=== PATIENT | male | born 1995 | race Caucasian/White ===

== ENCOUNTER 2016-11-04 15:31 | Emergency (ER) | payer BC ==
[2016-11-04 16:42] VITALS: BP 128/78
--- NOTE | 2016-11-04 16:45 | ERNOTE ---
Medical Problem HPI - Narrative Date of Service: 11/04/16 - General Chief Complaint: Nausea/Vomiting Time Seen by Provider: 11/04/16 16:43 Source: patient, RN notes reviewed Exam Limitations: no limitations - Immun/Allergies/Home Medications Immunizations: IMMUNIZATION HX Immunizations Up to Date No History of Influenza Vaccine No Hx Pneumococcal Vaccination No Allergies/Adverse Reactions: Allergies loratadine [From Claritin] Allergy (Verified 11/22/15 12:15) Home Medications: HOME MEDICATIONS NK [No Home Medication] 11/22/15 [Last Taken Unknown] - History of Present History Narrative: 21 y/o male ambulatory to the ED for nausea and vomiting that began early this morning. He reports having bright red blood in his emesis. He has also had diarrhea, but denies any blood in his stools. He has been able to tolerate liquids this afternoon. He reports using meth last evening. He thinks he also did heroin because his friend gave him some instead of giving him meth. He reports that he does not use drugs often, but he was bored and it makes him feel less depressed until he is no longer high. He thinks his GI symptoms may be d/t using on an empty stomach. He denies any sick contacts. Date (Duration): 11/05/16 Timing: resolved prior to arrival Severity: mild Review of Systems - Review of Systems Constitutional: Present: malaise. Absent: recent illness, fever, chills EYE: Present: no symptoms reported ENT: Present: no symptoms reported Respiratory: Absent: shortness of breath, cough Cardiology: Absent: chest pain, palpitations, syncope Gastrointestinal/Abdominal: Present: See HPI Genitourinary: Absent: dysuria, hematuria, decreased urinary output Musculoskeletal: Absent: muscle pain, neck pain Skin: Absent: rash, lesions Neurological: Present: dizziness/light-headedness. Absent: headache Endocrine: Present: no symptoms reported Hematologic/Lymphatic: Absent: easy bruising, easy bleeding Psych: Present: no symptoms reported, depressed - Patient's Past Medical History Patient History - Medical: No pertinent hx Patient History - Cardiac/Respiratory: No pertinent hx Patient History - Cancer: No Hx of Cancer Patient History - Surgical Procedures: Ear Tubes Patient History - Other: None - Social History Living Situations: home Psych History: No pertinent hx Smoking Status: Current every day smoker Have you smoked in the past 12 months: Yes Alcohol Use: rarely Drug Use: heroin, marijuana, meth - Immunizations Immunizations Up to Date: No Hx Pneumococcal Vaccination: No History of Influenza Vaccine: No Physical Exam - Physical Exam General Appearance: Present: wd/wn, alert, no apparent distress, other - disheveled but dressed appropriately Eye Exam: Normal inspection: bilateral Ears, Nose, Throat: Present: normal ENT inspection, hearing grossly normal, normal pharynx Neck: Present: normal inspection, nontender, supple Respiratory: Present: no respiratory distress, normal breath sounds, no accessory muscle use, lungs clear Cardiovascular/Chest: Present: regular rate, rhythm, no murmur, normal peripheral pulses Gastrointestinal/Abdominal: Present: normal bowel sounds, nontender, nondistended, soft, no organomegaly. Absent: mass, hernia Neurological Exam: Present: alert, oriented, normal mood/affect, no motor/ sensory deficits Skin Exam: Present: normal color, warm/dry ED Progress - Vital Signs Patient's Vital Signs:: I have reviewed the patient's vital signs. Vital Signs: Vital Signs 11/04/16 11/04/16 15:41 16:41 Temperature 36.1 C L Pulse Rate 118 H 82 Respiratory 16 12 Rate Blood Pressure 129/79 128/78 O2 Sat by Pulse 100 98 Oximetry - Progress/Reassessment Chief Complaint: Nausea/Vomiting Progress:: Unchanged Plan - Plan Plan: Patient seems to have improved since the onset of his symptoms. Discussed possibility of viral gastroenteritis as this has been prevalent in the community lately or symptoms may be d/t drug use. Recommended labs and xray - patient does not wish to do this at the current time because he has to be somewhere. Asks if he could return later for work-up, informed that he could do so, but if he felt that he needed further eval it should be performed now. Elected to be discharged. Agrees to return for worsening symptoms. Departure - Departure Clinical Impression: Drug abuse Hematemesis/vomiting blood Qualifiers: Nausea presence: with nausea Qualified Code(s): K92.0 - Hematemesis Disposition: Home Follow Up Needed Condition: Stable Instructions: Hematemesis, Stimulant Use Disorder-Methamphetamines Additional Instructions: Stop using drugs Return if symptoms worsen
--- OUTSIDE RECORDS SUMMARY | 2016-11-04 17:19 | XMS REPORT | Continuity of Care Document ---
:1995 Author Organization [facility] ([facility]) Address [address] [place] [address] Phone [phone] Care Team Providers Name Role Phone Provider, No-Primary Care Primary Care Provider Unavailable Source Comments This disclosure is being made pursuant to the Care Everywhere program, applicable federal and state laws, and may not contain all informaitonavailable regarding this patient.[facility] ([facility]) Active Allergies and Adverse Reactions Not on File Current Medications Not on file Active Problems Not on file Social History Tobacco Use Types Packs/Day Years Used Date Never Assessed Plan of Care Health Maintenance Due Date Last Done Comments Hepatitis B Vaccine (1 of 3 - Primary Series) 1995 HPV Vaccine (1 of 3 - Male 3 Dose Series) 2006 Tdap Vaccine 2006 Meningococcal Vaccine (1 of 1) 2011 Lipid Disorder Screening 2013 MMR Vaccine 2013 Td Vaccine 2013 Varicella Vaccine (1 of 2 - Adult - No Evidence of 2013 Immunity) Influenza Vaccine: Seasonal (#1) 04/19/2016 Results from Last 3 Months Not on file
== END 2016-11-04 17:12 | disposition home or self-care (01) ==
LOC: ER 15:31
DX: F12.10 Cannabis abuse, uncomplicated (principal); F15.10 Other stimulant abuse, uncomplicated; F11.10 Opioid abuse, uncomplicated; Z72.0 Tobacco use; K92.0 Hematemesis

== ENCOUNTER 2016-12-08 11:56 | Emergency (ER) | payer BC ==
[2016-12-08 12:23] VITALS: BP 119/70
--- OUTSIDE RECORDS SUMMARY | 2016-12-08 13:44 | XMS REPORT | Continuity of Care Document ---
:1995 Author Organization [facility] ([facility]) Address [address] [place] [address] Phone [phone] Care Team Providers Name Role Phone Provider, No-Primary Care Primary Care Provider Unavailable Source Comments This disclosure is being made pursuant to the Care Everywhere program, applicable federal and state laws, and may not contain all informaitonavailable regarding this patient.[facility] ([facility]) Active Allergies and Adverse Reactions Not on [...]
--- NOTE | 2016-12-08 13:55 | ERNOTE ---
Psychological HPI - General Chief Complaint: Psychiatric Problem Source: Reports: patient Exam Limitations: Reports: no limitations - Immun/Allergies/Home Medications Allergies/Adverse Reactions: Allergies loratadine [From Claritin] Allergy (Verified 12/08/16 12:23) Home Medications: HOME MEDICATIONS NK [No Home Medication] 11/22/15 [Last Taken Unknown] - History of Present Illness Narrative: Patient is here as he is court ordered to be evaluated for concerns about mental impairment with likely benavidez to injure himself and others. Patient states that he started using IV meth a few months ago. He started just to try it with some friends, uses it exclusively IV about once a week, can't give any particular reasons why he started, denies any significant stressors in his life. He vehemently denies any plans to hurt himself or anyone else. Currently he lives with his grandparents. He states that they don't talk much to each other and have verbal fights occasionally. Hehas a job interview tomorrow with a [employer] which he doesn't want to miss. Time Seen by Provider: 12/08/16 13:28 Arrived by: Reports: police Review of Systems - Review of Systems Constitutional: Absent: recent illness, fever ENT: Absent: nose congestion, nasal drainage Respiratory: Absent: shortness of breath, cough Cardiology: Absent: chest pain Gastrointestinal/Abdominal: Absent: nausea, abdominal pain Genitourinary: Present: no symptoms reported Musculoskeletal: Absent: muscle pain Skin: Absent: rash Neurological: Absent: headache, weakness, numbness Psych: Absent: anxiety, depressed, emotional problems - Patient's Past Medical History Patient History - Medical: No pertinent hx Patient History - Cardiac/Respiratory: No pertinent hx Patient History - Cancer: No Hx of Cancer Patient History - Surgical Procedures: Ear Tubes Patient History - Other: None - Social History Living Situations: home Psych History: No pertinent hx Smoking Status: Current every day smoker Alcohol Use: rarely Drug Use: marijuana, meth - Immunizations Immunizations Up to Date: Yes Hx Pneumococcal Vaccination: No History of Influenza Vaccine: No Physical Exam - Physical Exam General Appearance: Present: wd/wn, alert, no apparent distress Eye Exam: Normal inspection: bilateral, PERRL: bilateral Ears, Nose, Throat: Present: normal ENT inspection, normal pharynx Neck: Present: normal inspection, nontender Respiratory: Present: no respiratory distress, normal breath sounds, no accessory muscle use, lungs clear Cardiovascular/Chest: Present: regular rate, rhythm, no murmur Gastrointestinal/Abdominal: Present: nontender, nondistended, soft Extremity Exam: Present: normal inspection Neurological Exam: Present: alert, oriented, normal mood/affect, no motor/ sensory deficits Skin Exam: Present: normal color, warm/dry ED Progress - Results and Orders Patient's Lab Results:: I have reviewed the patient's lab results. - Vital Signs Patient's Vital Signs:: I have reviewed the patient's vital signs. Vital Signs: Vital Signs 12/08/16 12:20 Temperature 36.9 C Pulse Rate 72 Respiratory 16 Rate Blood Pressure 119/70 O2 Sat by Pulse 100 Oximetry - Progress/Reassessment Chief Complaint: Psychiatric Problem Progress Note-Subjective: 12/08/16 16:15 lab results available now called Judge Pepper, left message 12/08/16 16:58 message to License Distributor Will 12/08/16 17:35 [address] Pepper, patient is not deemed to be mentally ill besides from being a drug user, no suicidal or homicidal ideation patient unlikely to cause harm to himself or others received verbal order from Judge Pepper to release patient, he is still to appear for his court hearing scheduled for 12/13/2016 2:00pm 12/08/16 17:40 discussed plan, release and follow up with patient Departure Clinical Impression: Drug abuse - Departure Disposition: Home self-care Condition: Good Instructions: Stimulant Use Disorder-Methamphetamines Additional Instructions: you still will need to appear for your court hearing on 12/13/2016 at 2:00pm Referrals: Mitesh Becerril DO [Staff Physician] -
[2016-12-08 13:59] LABS: Hematocrit 43.9 % (42.0-52.0); Hemoglobin 14.6 gm/dL (13.5-18.0); Mean Cell Volume 87.8 fl (78-100); Mean Corpuscular Hemoglobin 29.2 pg (27-31); Mean Corpuscular Hgb Conc 33.3 g/dl (32-36); Mean Platelet Volume 9.1 fl (6.0-9.5); Neutrophil # 3.6 K/mm3 (1.3-6.0); Neutrophil % 60.2 % (42-75.0); Platelet Count 249 K/mm3 (150-450); Red Cell Distribution Width 12.3 % (11.5-14.0)
[2016-12-08 14:22] LABS: ALT 52 U/L (19-67); AST 22 U/L (0-48); Albumin * 3.7 gm/dl (3.4-5.0); Alkaline Phosphatase * 77 U/L (50-170); BUN/Creatinine Ratio 19.5 (9.0-21.6); Bilirubin, Total 0.3 mg/dL (0.0-1.1); Blood Urea Nitrogen 16 mg/dL (6-23); Ca. Corrected For Albumin 8.6 mg/dL (8.4-10.2); Calcium * 8.7 mg/dL (7.9-10.9); Carbon Dioxide 31.1 mmol/L (24-32.6); Chloride 104 mmol/L (97-106); Glucose * 81 mg/dL (70-110); Potassium 4.1 mmol/L (3.4-4.6); Salicylate Less than 2.8 mg/dL (2.8-20.0); Sodium 143 mmol/L (132-142); TSH * 1.263 uIU/mL (0.358-3.74); Total Protein 7.3 gm/dL (6.2-8.2)
[2016-12-08 15:16] LABS: Urine Bilirubin Negative (NEGATIVE); Urine Blood Negative /ul (NEGATIVE); Urine Ketone Negative (NEGATIVE); Urine Nitrite Negative (NEGATIVE); Urine Protein Negative (NEGATIVE); Urine Specific Gravity 1.025 SP.GR. (1.005-1.030); Urine Urobilinogen Normal (NORMAL); Urine pH 6.5 pH (5.0-7.0)
[2016-12-08 15:21] LABS: Urine Appearance Clear; Urine Bacteria None Seen; Urine Color Yellow; Urine RBC None Seen /hpf (0-5); Urine WBC None Seen /hpf (0-5)
[2016-12-08 15:29] LABS: Cocaine Ur Negative (NEGATIVE); Urine Barbiturate Negative (NEGATIVE); Urine Benzodiazepines Negative (NEGATIVE); Urine Opiates Negative (NEGATIVE); Urine PCP Negative (NEGATIVE)
[2016-12-08 15:34] LABS: Urine THC Positive (NEGATIVE)
== END 2016-12-08 17:55 | disposition home or self-care (01) ==
LOC: ER 11:56
DX: F15.10 Other stimulant abuse, uncomplicated (principal); Z72.0 Tobacco use
CPT/HCPCS: 36415; 80053; 80307; 80320; 81001; 84443; 85025; 99282; G0480